=== PATIENT | female | born 1995 | race Caucasian/White ===

== ENCOUNTER → 2016-12-18 | Outpatient (CLI) | payer BC ==
--- NOTE | 2016-12-18 15:39 | REP ---
Clinical: Pleuritic chest pain . Comparison: None . Technique: PA and lateral. Findings: The mediastinum and cardiac silhouette are normal. The lung morales are clear and without acute consolidation, effusion, or pneumothorax. The skeletal structures are intact and normal. Impression: 1. No acute cardiopulmonary process. Signed by Elan Ng MD 12/18/2016 03:31 P
== END ==
LOC: M WUC 15:20
PROVIDERS: ATTEND Physician Assistant
DX: R09.1 Pleurisy (principal)

== ENCOUNTER → 2017-06-28 | Outpatient (REF) | payer BC ==
[2017-06-28 14:48] LABS: CHLAMYDIA DNA AMPLIFICATION NEGATIVE (NEGATIVE); GC DNA AMPLIFICATION NEGATIVE (NEGATIVE)
== END ==
LOC: M LAB REF 11:55
DX: Z11.3 Encounter for screening for infections with a predominantly sexual mode of transmission (principal)
CPT/HCPCS: 87591

== ENCOUNTER → 2017-10-27 | Outpatient (REF) | payer BC | LOC: M SFHCWAGY 10:53 | DX: Z12.4 Encounter for screening for malignant neoplasm of cervix (principal); B37.9 Candidiasis, unspecified ==

== ENCOUNTER → 2018-04-27 | Outpatient (REF) | payer BC | LOC: M LAB REF 18:39 | PROVIDERS: ATTEND Nurse Practitioner Family | DX: F90.9 Attention-deficit hyperactivity disorder, unspecified type (principal) ==

== ENCOUNTER → 2018-07-03 | Outpatient (REF) | payer BC | LOC: M LAB REF 12:45 | PROVIDERS: ATTEND Nurse Practitioner Family | DX: R82.5 Elevated urine levels of drugs, medicaments and biological substances (principal) ==

== ENCOUNTER → 2019-10-31 | Outpatient (REF) | payer BC | LOC: M LAB REF 17:04 | PROVIDERS: ATTEND Physician Assistant | DX: R35.0 Frequency of micturition (principal) ==

== ENCOUNTER → 2023-12-08 | Outpatient (CLI) | payer OTHER | LOC: M SOG 07:57 | PROVIDERS: ATTEND Physician Assistant | DX: M79.645 Pain in left finger(s) (principal) ==

== ENCOUNTER → 2024-01-12 | Outpatient (CLI) | payer OTHER | LOC: M PLAIMG 09:43 | PROVIDERS: ATTEND Physician Assistant | DX: R22.32 Localized swelling, mass and lump, left upper limb (principal) ==

== ENCOUNTER 2024-02-13 06:08 | Day surgery (SDC) | payer OTHER ==
[~2024-02-13] VITALS: Ht 165.1 cm; Wt 71.7 kg
[~2024-02-13 06:08] MED LIST: AMPH1CAP4 PO; BUSP1TAB PO; CLIN150C17 PO; D-AMPHETAMINE PO; ETON68IM SC; FLUTISP; LEVOTAB10 PO; MONT10TA97 PO
[2024-02-13] MEDS ORDERED: NS 1,000 ML IV SCH ×2 (06:20→08:20)
[2024-02-13] MEDS ORDERED: PROA1AER2 IN (06:36)
[2024-02-13] MEDS: ceFAZolin 2 GM/D5W 50 ML IV BAG As Ordered ONE (07:44)
[2024-02-13] MEDS ORDERED: fentaNYL 100 MCG/2 ML INJECTION As Ordered ONE (07:45)
[2024-02-13] MEDS ORDERED: ONDANSETRON 4MG 2ML VIAL As Ordered ONE (07:45)
[2024-02-13] MEDS ORDERED: dexmedeTOMIDine (4MCG/ML)200MCG/50ML BTL (PRECEDEX) As Ordered ONE (07:45)
[2024-02-13] MEDS ORDERED: LIDOCAINE 2% 100MG/5ML SDV (FOR ANES.) As Ordered ONE (07:45)
[2024-02-13] MEDS ORDERED: MIDAZOLAM INJ 2MG/2ML VIAL As Ordered ONE (07:45)
[2024-02-13] MEDS ORDERED: propofoL 200 MG/20 ML VIAL As Ordered ONE (07:45)
[2024-02-13] MEDS ORDERED: ACETAMINOPHEN 1000MG 100ML IV BAG As Ordered ONE (07:50)
[2024-02-13] MEDS ORDERED: KETOROLAC 60MG 2ML VIAL As Ordered ONE (08:01)
[2024-02-13] MEDS: BACITRACIN OINTMENT 30GM TUBE As Ordered ONE (08:11)
[2024-02-13] MEDS ORDERED: ONDANSETRON 4MG 2ML VIAL IV PRN (08:20)
[2024-02-13] MEDS ORDERED: fentaNYL 100 MCG/2 ML INJECTION IV PRN (08:20)
[2024-02-13] MEDS ORDERED: HYDROMORPHONE HCL 0.5 MG/ 0.5 ML SYRINGE IV PRN (08:20)
[2024-02-13] MEDS: oxyCODONE 5MG TAB PO PRN (08:31)
[2024-02-13 09:20] VITALS: BP 123/84; TEMP 97.1; O2SAT 100
== END 2024-02-13 09:38 | disposition home or self-care (01) ==
LOC: M SDC 06:08
PROVIDERS: ATTEND Orthopaedic Surgery Hand Surgery
DX: D48.19 Other specified neoplasm of uncertain behavior of connective and other soft tissue (principal); J45.909 Unspecified asthma, uncomplicated; L30.9 Dermatitis, unspecified; Z79.899 Other long term (current) drug therapy; Z90.89 Acquired absence of other organs; Z97.5 Presence of (intrauterine) contraceptive device
CPT/HCPCS: 26113; 81025; 88305; J0131; J0665; J0690; J1100; J1885; J2250; J2405; J3010